=== PATIENT | female | born 1945 | race Caucasian/White ===

== ENCOUNTER 2017-03-23 07:47 | Outpatient (CLI) | payer MEDICARE ==
[2017-03-23 08:24] LABS: BASOPHILS # (AUTO) 0.2 10^3/uL (0.0-0.1); BASOPHILS % (AUTO) 3.1 %; EOSINOPHILS # (AUTO) 0.3 10^3/uL (0.0-0.7); EOSINOPHILS % (AUTO) 4.8 %; HGB - HEMOGLOBIN 13.5 g/dL (12.0-16.0); LYMPHOCYTES # (AUTO) 1.5 10^3/uL (1.5-3.5); LYMPHOCYTES % (AUTO) 23.7 %; MEAN CORPUSCULAR HEMOGLOBIN 30.8 pg (27.0-31.0); MEAN CORPUSCULAR HGB CONC 34.6 g/dL (32.0-36.0); MEAN PLATELET VOLUME 8.4 fL (7.9-10.8); MONOCYTES # (AUTO) 0.6 10^3/uL (0.0-1.0); NEUTROPHILS # (AUTO) 3.8 10^3/uL (1.5-6.6); NEUTROPHILS % (AUTO) 59.4 %; RED BLOOD COUNT 4.38 10^6/uL (4.20-5.40); RED CELL DISTRIBUTION WIDTH 13.8 % (12.0-15.0); UNCORRECTED WHITE BLOOD COUNT 6.4 x10^3/uL; WHITE BLOOD COUNT 6.4 x10^3/uL (4.8-10.8)
[2017-03-23 08:47] LABS: ALBUMIN/GLOBULIN RATIO 1.8 (1.0-2.2); BILIRUBIN,TOTAL 1.2 mg/dL (0.2-1.0); BUN - BLOOD UREA NITROGEN 23 mg/dL (6-20); CALCIUM 9.6 mg/dL (8.5-10.3); CARBON DIOXIDE - CO2 29 mmol/L (21-32); CHLORIDE 97 mmol/L (101-111); CHOL/HDL RATIO 2.6 (<4.4); CHOLESTEROL 212 mg/dL; CREATININE 1.1 mg/dL (0.4-1.0); GFR - MDRD 49 (>89); GLUCOSE 101 mg/dL (70-100); HDL CHOLESTEROL 83 mg/dL; LDL/HDL RATIO 1.4 (<4.4); POTASSIUM 4.1 mmol/L (3.5-5.0); SODIUM 135 mmol/L (135-145); TOTAL PROTEIN 6.4 g/dL (6.7-8.2); TRIGLYCERIDES 77 mg/dL; VLDL CHOLESTEROL 15 mg/dL
== END 2017-03-23 07:48 | disposition home or self-care (01) ==
LOC: LAB 07:47
PROVIDERS: ATTEND Nurse Practitioner Primary Care
DX: R22.2 Localized swelling, mass and lump, trunk (principal); Z79.899 Other long term (current) drug therapy
CPT/HCPCS: 36415; 80053; 80061; 84443; 85025

== ENCOUNTER 2017-04-15 08:19 | Outpatient (CLI) | payer MEDICARE ==
--- NOTE | 2017-04-15 16:28 | DEXA Report ---
DEXA SCAN: 04/15/2017 CLINICAL INDICATION: Postmenopausal. TECHNIQUE: Dual energy x-ray absorptiometry (DXA) was performed on a [employer] system. Regions measured are the AP spine, femoral neck, and, if needed, forearm. COMPARISON: None. In accordance with the International Society for Clinical Densitometry (ISCD) guidelines, data from previous exams may be reanalyzed using current recommendations and techniques. This is done to allow a more accurate basis for comparison with the current study. FINDINGS: The data for the lumbar spine is as follows: REGION BMD (g/cm/cm) T-SCORE Z-SCORE L1 0.885 -2.0 -0.3 L2 0.965 -2.0 -0.2 L3 1.030 -1.4 0.4 L4 1.118 -0.7 1.1 TOTAL 1.006 -1.5 0.3 NOTE: All evaluable vertebrae are used for classification. The data for the hip is as follows: REGION BMD (g/cm/cm) T-SCORE Z-SCORE Neck 0.788 -1.8 0.1 TOTAL 0.887 -1.0 0.7 NOTE: The femoral neck or total proximal femur, whichever is lowest, is used for classification. IMPRESSION: THE WHO CLASSIFICATION BASED ON THE INTERNATIONAL REFERENCE STANDARD IS OSTEOPENIA. THE FRACTURE RISK IS INCREASED. RECOMMENDATION: Patients with diagnosis of osteoporosis or osteopenia should have regular bone mineral density assessment. For those eligible for Medicare, routine testing is allowed once every 2 years. Testing frequency can be increased for patients who have rapidly progressing disease or for those who are receiving medical therapy to restore bone mass. COMMENT: World Health Organization (WHO) definitions for osteoporosis and osteopenia: NORMAL BMD: T-score at -1.0 or higher, fracture risk is low. OSTEOPENIA BMD: T-score between -1.0 and -2.5, fracture risk is increased. OSTEOPOROSIS BMD: T-score at -2.5 or lower, fracture risk high. National Osteoporosis Foundation recommends: 1. Obtain adequate dietary calcium (at least 1200 mg per day) and vitamin D (400 -800 international units per day). 2. Participate, as appropriate, in regular weightbearing and muscle- strengthening exercise. 3. Avoid tobacco use and reduce alcohol and caffeine intake. 4. For more detailed information see the website at www.NOF.org. MTDD
== END 2017-04-15 08:20 | disposition home or self-care (01) ==
LOC: DI 08:19
PROVIDERS: ATTEND Nurse Practitioner Primary Care
DX: Z13.820 Encounter for screening for osteoporosis (principal); M85.89 Other specified disorders of bone density and structure, multiple sites; Z78.0 Asymptomatic menopausal state
CPT/HCPCS: 77080

== ENCOUNTER 2017-04-15 08:23 | Outpatient (CLI) | payer MEDICARE ==
--- NOTE | 2017-04-16 15:21 | Mammography Report ---
DIGITAL SCREENING MAMMOGRAM: 04/15/2017 CLINICAL INDICATION: A 71-year-old with history of late childbearing, for screening. COMPARISON: 06/2015, 05/2014, 07/2011, 06/2010, 06/2009, 03/2008. TECHNIQUE: Routine CC and MLO projections were obtained of the breasts. FINDINGS: The breasts demonstrate scattered fibroglandular densities bilaterally. A few coarse, typi leoncio benign calcifications are present. No suspicious masses, clustered microcalcifications, or jesus ons of architectural distortion are identified. IMPRESSION: BENIGN FINDINGS. RECOMMENDATION: ROUTINE ANNUAL SCREENING UNLESS OTHERWISE CLINICALLY INDICATED. BIRADS CATEGORY 2-BENIGN FINDINGS. STANDARD QUALIFYING STATEMENTS 1. This examination was reviewed with the aid of Computer-Aided Detection (CAD). 2. A negative or benign imaging report should not delay biopsy if clinically suspicious findings are present. Consider surgical consultation if warranted. More than 5% of cancers are not identified by i maging. 3. Dense breasts may obscure an underlying neoplasm. JOB #: [id number] EXT JOB #:[id number]
== END 2017-04-15 08:24 | disposition home or self-care (01) ==
LOC: DI 08:23
PROVIDERS: ATTEND Nurse Practitioner Primary Care
DX: Z12.31 Encounter for screening mammogram for malignant neoplasm of breast (principal)
CPT/HCPCS: 77067

== ENCOUNTER 2018-04-06 07:02 | Outpatient (CLI) | payer MEDICARE ==
[2018-04-06 07:35] LABS: BASOPHILS # (AUTO) 0.1 10^3/uL (0.0-0.1); BASOPHILS % (AUTO) 2.1 %; EOSINOPHILS # (AUTO) 0.2 10^3/uL (0.0-0.7); EOSINOPHILS % (AUTO) 2.9 %; HGB - HEMOGLOBIN 13.7 g/dL (12.0-16.0); LYMPHOCYTES # (AUTO) 1.4 10^3/uL (1.5-3.5); LYMPHOCYTES % (AUTO) 19.5 %; MEAN CORPUSCULAR HEMOGLOBIN 30.5 pg (27.0-31.0); MEAN CORPUSCULAR HGB CONC 33.9 g/dL (32.0-36.0); MEAN CORPUSCULAR VOLUME 89.9 fL (81.0-99.0); MEAN PLATELET VOLUME 7.8 fL (7.9-10.8); MONOCYTES # (AUTO) 0.5 10^3/uL (0.0-1.0); MONOCYTES % (AUTO) 7.6 %; NEUTROPHILS # (AUTO) 4.9 10^3/uL (1.5-6.6); NEUTROPHILS % (AUTO) 67.9 %; PLT - PLATELET COUNT 295 10^3/uL (130-450); RED BLOOD COUNT 4.48 10^6/uL (4.20-5.40); RED CELL DISTRIBUTION WIDTH 13.4 % (12.0-15.0); WHITE BLOOD COUNT 7.2 x10^3/uL (4.8-10.8)
[2018-04-06 07:49] LABS: ALBUMIN 4.3 g/dL (3.2-5.5); ALBUMIN/GLOBULIN RATIO 1.7 (1.0-2.2); ALKALINE PHOSPHATASE 82 IU/L (42-121); ALT ALANINE AMINOTRANSFERASE 19 IU/L (10-60); AST ASPARTATE AMINOTRANSFERASE 24 IU/L (10-42); BILIRUBIN,TOTAL 1.1 mg/dL (0.2-1.0); BUN - BLOOD UREA NITROGEN 23 mg/dL (6-20); CALCIUM 9.5 mg/dL (8.5-10.3); CARBON DIOXIDE - CO2 29 mmol/L (21-32); CHLORIDE 93 mmol/L (101-111); CHOL/HDL RATIO 3.3 (<4.4); CHOLESTEROL 288 mg/dL; CREATININE 1.2 mg/dL (0.4-1.0); GFR - MDRD 44 (>89); GLUCOSE 89 mg/dL (70-100); HDL CHOLESTEROL 88 mg/dL; LDL CHOLESTEROL,CALCULATED 180 mg/dL; SODIUM 130 mmol/L (135-145); TOTAL PROTEIN 6.8 g/dL (6.7-8.2); VLDL CHOLESTEROL 20 mg/dL
== END 2018-04-06 07:03 | disposition home or self-care (01) ==
LOC: LAB 07:02
PROVIDERS: ATTEND Nurse Practitioner Primary Care
DX: Z13.29 Encounter for screening for other suspected endocrine disorder (principal); Z79.899 Other long term (current) drug therapy; E78.5 Hyperlipidemia, unspecified; N18.3 Chronic kidney disease, stage 3 (moderate); I10 Essential (primary) hypertension; F41.8 Other specified anxiety disorders
CPT/HCPCS: 36415; 80053; 80061; 83721; 84443; 85025

== ENCOUNTER 2018-04-12 12:31 | Outpatient (CLI) | payer MEDICARE ==
--- NOTE | 2018-04-14 09:44 | XRAY Report ---
Procedure Date: 04/12/2018 Accession Number: [id number] / [id number] Procedure: XR - Shoulder 2 View LT CPT Code: FULL RESULT: EXAM: LEFT SHOULDER RADIOGRAPHY EXAM DATE: 04/12/2018 01:25 PM. CLINICAL HISTORY: IMPINGEMENT SYNDROME OF LT SHOULDER. Decreased range of motion after pulling weeds one week ago. COMPARISON: None. TECHNIQUE: 2 views. FINDINGS: Bones: No acute fracture or bony lesion. Mild degenerative spurring. Joints: Normal alignment. Narrowing of the left acromioclavicular and left glenohumeral joints. No dislocation. Soft tissues: Irregular soft tissue calcification is seen along the superior and lateral aspect of the left humeral head measuring 1.7 cm. Left lung is clear. IMPRESSION: 1. No acute osseous abnormalities. Normal alignment. 2. Degenerative changes of the left shoulder. 3. Left shoulder calcific tendinosis. RADIA
== END 2018-04-12 12:32 | disposition home or self-care (01) ==
LOC: DI 12:31
PROVIDERS: ATTEND Nurse Practitioner Primary Care
DX: M19.012 Primary osteoarthritis, left shoulder (principal); M67.814 Other specified disorders of tendon, left shoulder

== ENCOUNTER 2018-07-06 08:02 | Outpatient (CLI) | payer MEDICARE ==
[2018-07-06 08:40] LABS: BUN - BLOOD UREA NITROGEN 22 mg/dL (6-20); CALCIUM 9.6 mg/dL (8.5-10.3); CARBON DIOXIDE - CO2 31 mmol/L (21-32); CHLORIDE 96 mmol/L (101-111); CHOL/HDL RATIO 2.3 (<4.4); CHOLESTEROL 180 mg/dL; CREATININE 1.1 mg/dL (0.4-1.0); GFR - MDRD 49 (>89); GLUCOSE 101 mg/dL (70-100); HDL CHOLESTEROL 80 mg/dL; LDL CHOLESTEROL,CALCULATED 81 mg/dL; SODIUM 133 mmol/L (135-145); VLDL CHOLESTEROL 19 mg/dL
== END 2018-07-06 08:03 | disposition home or self-care (01) ==
LOC: LAB 08:02
PROVIDERS: ATTEND Nurse Practitioner Primary Care
DX: Z51.81 Encounter for therapeutic drug level monitoring (principal); E78.5 Hyperlipidemia, unspecified
CPT/HCPCS: 36415; 80048; 80061; 83721

== ENCOUNTER 2020-06-21 07:00 | Outpatient (CLI) | payer MEDICARE | END 2020-06-21 23:59 | disposition home or self-care (01) | LOC: LAB.R 07:00 | PROVIDERS: ATTEND Family Medicine | DX: R30.0 Dysuria (principal) | CPT/HCPCS: 81002; 87086; 87181 ==

== ENCOUNTER 2020-08-19 15:20 | Outpatient (CLI) | payer MEDICARE ==
--- NOTE | 2020-08-20 16:45 | Mammography Report ---
BILATERAL DIGITAL SCREENING MAMMOGRAM 3D/2D: 08/19/2020 CLINICAL: Routine screening. Comparison is made to exams dated: 04/15/2017 mammogram and 06/10/2015 mammogram - [facility]. There are scattered fibroglandular elements in both breasts. No significant masses, calcifications, or other findings are seen in either breast. There has been no significant interval change. IMPRESSION: NEGATIVE There is no mammographic evidence of malignancy. A 1 year screening mammogram is recommended. This exam was interpreted at Station ID: [id number]. NOTE: For mammograms, a report in lay terms will be sent to the patient. Approximately 15% of breast malignancies will not be visualized mammographically. In the management of a palpable breast mass, a negative mammogram must not discourage biopsy of a clinically suspicious lesion. Electronically Signed By: Dinesh jennings/guillermorad:08/19/2020 17:16:43 ACR BI-RADS Category 1: Negative [id number] PARENCHYMAL PATTERN: (A) - The breast(s) demonstrate(s) scattered fibroglandular densities. BI-RADS CATEGORY: (1) - 1 RECOMMENDATION: (ANNUAL) - Recommend routine annual screening mammography. [id number] 1 year screening LATERALITY: (B)
== END 2020-08-19 15:21 | disposition home or self-care (01) ==
LOC: DI 15:20
DX: Z12.31 Encounter for screening mammogram for malignant neoplasm of breast (principal)
CPT/HCPCS: 77063; 77067

== ENCOUNTER 2020-08-21 10:13 | Inpatient (IN) | payer MEDICARE ==
[2020-08-21] MEDS ORDERED: ASPIRIN CHEW 81 MG TABLET PO STA (10:28)
--- NOTE | 2020-08-21 10:29 | ED Physician Documentation ---
PD HPI DYSPNEA - Stated complaint Stated Complaint: SOA - Chief complaint Chief Complaint: Resp - History obtained from History obtained from: Patient - Additional information Additional information: This is a 74-year-old woman with history of hypercholesterolemia, hypertension. For the last month or so she has had exertional dyspnea associated with nausea. There is no associated chest pain or discomfort with it. She has no history of heart or lung problems that she knows of, but does recall having a stress test maybe 10 or 15 years ago that was normal. She denies pedal edema or calf pain. She has a mild chronic dry cough from her lisinopril, no acute cough. No fevers. Review of Systems Ten Systems: 10 systems reviewed and negative Constitutional: reports: Fatigue. denies: Fever, Chills Cardiac: denies: Chest pain / pressure, Palpitations, Pedal edema, Calf pain Respiratory: reports: Dyspnea PD PAST MEDICAL HISTORY - Past Medical History Cardiovascular: Hypertension Respiratory: None Endocrine/Autoimmune: None GI: GERD : None HEENT: Macular degeneration Psych: Anxiety Musculoskeletal: Osteoarthritis Derm: None - Past Surgical History General: Colonoscopy HEENT: Tonsil/Adenoidectomy - Present Medications Home Medications: Ambulatory Orders Medication Instructions Recorded Confirmed Hydrochlorothiazide 25 mg PO DAILY 10/03/14 10/04/14 LORazepam [Lorazepam] 0.5 mg PO ONCE PRN 10/03/14 10/04/14 lisinopriL [Lisinopril] 10 mg PO QPM 10/03/14 10/04/14 - Allergies Allergies/Adverse Reactions: Allergies Allergy/AdvReac Type Severity Reaction Status Date / Time No Known Drug Allergies Allergy Verified 08/21/20 10:28 - Social History Does the pt smoke?: No PD ED PE NORMAL - Vitals Vital signs reviewed: Yes - General General: Alert and oriented X 3, No acute distress - HEENT HEENT: PERRL, EOMI - Neck Neck: Supple, no meningeal sign, No bony TTP - Cardiac Cardiac: RRR, No murmur - Respiratory Respiratory: No respiratory distress, Clear bilaterally - Abdomen Abdomen: Non tender - Extremities Extremities: No edema, No calf tenderness / cord - Neuro Neuro: Alert and oriented X 3, Normal speech Results - Vitals Vitals: Vital Signs - 24 hr 08/21/20 10:24 Temperature 36.9 C Heart Rate 74 Respiratory 10 L Rate Blood Pressure 143/84 H O2 Saturation 97 Oxygen O2 Source Room air - EKG (time done) 1048 Rate: Rate (enter#) (60) Rhythm: NSR [place]: LAD Intervals: Normal FL QRS: Normal Ischemia: Non specific changes. No: ST elevation c/w ischemia, ST depression Computer interpretation: Agree with computer - Labs Labs: Laboratory Tests 08/21/20 08/21/20 08/21/20 10:40 10:40 10:40 WBC 7.8 RBC 4.70 Hgb 14.2 Hct 42.5 MCV 90.4 MCH 30.2 MCHC 33.4 RDW 13.3 Plt Count 225 MPV 9.9 Neut # (Auto) 5.6 Lymph # (Auto) 1.2 L Kimball # (Auto) 0.8 Eos # (Auto) 0.1 Baso # (Auto) 0.1 Absolute Nucleated RBC 0.00 Nucleated RBC % 0.0 D-Dimer 788.8 H Sodium 137 Potassium 3.9 Chloride 100 L Carbon Dioxide 26 Anion Gap 11.0 BUN 21 H Creatinine 1.3 H Estimated GFR (MDRD) 40 L Glucose 113 H Calcium 9.9 Total Bilirubin 1.1 H AST 19 ALT 15 Alkaline Phosphatase 77 Troponin I High Sens B-Natriuretic Peptide Total Protein 6.9 Albumin 4.0 Globulin 2.9 Albumin/Globulin Ratio 1.4 Lipase 41 08/21/20 08/21/20 10:40 10:40 WBC RBC Hgb Hct MCV MCH MCHC RDW Plt Count MPV Neut # (Auto) Lymph # (Auto) Kimball # (Auto) Eos # (Auto) Baso # (Auto) Absolute Nucleated RBC Nucleated RBC % D-Dimer Sodium Potassium Chloride Carbon Dioxide Anion Gap BUN Creatinine Estimated GFR (MDRD) Glucose Calcium Total Bilirubin AST ALT Alkaline Phosphatase Troponin I High Sens 12.0 B-Natriuretic Peptide 66 Total Protein Albumin Globulin Albumin/Globulin Ratio Lipase - Rads (name of study) 1v CXR Radiology: EMP read contemporaneously (Lg pA vs R hilar mass) CT Chest Radiology: EMP read contemporaneously (Multiple bilateral pulmonary emboli, segmental with large pulmonary artery and large lung volumes without evidence of malignancy.) PD MEDICAL DECISION MAKING - ED course ED course: 74-year-old woman presents with exertional shortness of breath nausea and dizziness for the last month. Her examination is normal. Her EKG is nonischemic. Troponin negative. Chest x-ray has shown, somewhat concerning for malignancy, followed up with a chest CT showing multiple pulmonary emboli. She did become significantly hypoxemic while in the department, down to 76% on room air requiring supplemental oxygen and as such I ordered Lovenox and spoke with Dr. Lee for admission at 11:50 AM. Departure - Departure Disposition: [facility] DC/Xfer Clinical Impression: Hypoxemia Pulmonary embolism Qualifiers: Pulmonary embolism type: multiple subsegmental (without acute cor pulmonale) Qualified Code(s): I26.94 - Multiple subsegmental pulmonary emboli without acute cor pulmonale Condition: Serious
[2020-08-21 10:45] LABS: BASOPHILS # (AUTO) 0.1 10^3/uL (0.0-0.1); BASOPHILS % (AUTO) 0.8 %; EOSINOPHILS # (AUTO) 0.1 10^3/uL (0.0-0.7); EOSINOPHILS % (AUTO) 1.4 %; HGB - HEMOGLOBIN 14.2 g/dL (12.0-16.0); LYMPHOCYTES # (AUTO) 1.2 10^3/uL (1.5-3.5); LYMPHOCYTES % (AUTO) 15.7 %; MEAN CORPUSCULAR HEMOGLOBIN 30.2 pg (27.0-31.0); MEAN CORPUSCULAR HGB CONC 33.4 g/dL (32.0-36.0); MEAN CORPUSCULAR VOLUME 90.4 fL (81.0-99.0); MEAN PLATELET VOLUME 9.9 fL (7.9-10.8); MONOCYTES # (AUTO) 0.8 10^3/uL (0.0-1.0); NEUTROPHILS # (AUTO) 5.6 10^3/uL (1.5-6.6); NEUTROPHILS % (AUTO) 71.7 %; PLT - PLATELET COUNT 225 10^3/uL (130-450); RED CELL DISTRIBUTION WIDTH 13.3 % (12.0-15.0); WHITE BLOOD COUNT 7.8 x10^3/uL (4.8-10.8)
--- NOTE | 2020-08-21 10:48 | XRAY Report ---
PROCEDURE: Chest 1 View X-Ray INDICATIONS: Chest Pain TECHNIQUE: One view of the chest was acquired. COMPARISON: CXR 12/05/2014. FINDINGS: Surgical changes and devices: None. Lungs and pleura: No pleural effusions or pneumothorax. Lungs are clear. Prominent lung volumes. Mediastinum: Mediastinal contours appear unchanged. Mild fullness in the right hilar region. Heart size is normal. Bones and chest wall: No suspicious bony lesions. Overlying soft tissues appear unremarkable. IMPRESSION: No acute cardiopulmonary abnormality. Prominent lung volumes. Suspect emphysematous change. Mild prominence in the right hilar region. However, this appears similar to 2014 and may be due to pr ominent pulmonary artery. If there is suspicion for adenopathy recommend CT of the chest with IV cont rast. Reviewed by: Cipriano Zavala MD on 08/21/2020 10:47 AM PDT Approved by: Cipriano Zavala MD on 08/21/2020 10:47 AM PDT Station ID: [id number]
[2020-08-21 11:01] LABS: ALBUMIN/GLOBULIN RATIO 1.4 (1.0-2.2); BILIRUBIN,TOTAL 1.1 mg/dL (0.2-1.0); CALCIUM 9.9 mg/dL (8.5-10.3); CREATININE 1.3 mg/dL (0.4-1.0); TOTAL PROTEIN 6.9 g/dL (6.7-8.2)
[2020-08-21] MEDS ORDERED: IOVERSOL 320 100 ML VIAL IVP ONE (11:11)
--- NOTE | 2020-08-21 11:40 | CT Report ---
PROCEDURE: CHEST W INDICATIONS: dyspnea, abn cxr CONTRAST: IV CONTRAST: Optiray 320 ml: 100 PO CONTRAST: *NO PO CONTRAST TECHNIQUE: After the administration of intravenous contrast, 5 mm thick sections acquired from the pulmonary api julito to the posterior costophrenic angles. 7 mm thick coronal MIP reformats were acquired. For radia tion dose reduction, the following was used: automated exposure control, adjustment of mA and/or kV according to patient size. COMPARISON: None. FINDINGS: Image quality: Excellent. Lungs and pleura: No acute air space opacities but there are relatively large lung volumes bilateral ly. No pleural effusions or pneumothorax. Central and peripheral airways are patent and normal in ca liber. Mediastinum: Heart size is normal. No pericardial effusion. No mediastinal or hilar adenopathy by size criteria. Thoracic aorta and central pulmonary arteries are asymmetric in size, normal at the a caryn but enlarged at the central pulmonary arteries. On discussing the case with the emergency room p hysician caring for the patient symptomatology of pulmonary emboli apparently began approximately 30 days ago. This may explain the prominence of the central pulmonary arteries given that relative chron icity. Note is made of multiple bilateral pulmonary emboli, generally partially obstructive, somewhat greate r on the right than the left. Involving the upper, middle third and lower thirds of the lung parenchy ma bilaterally. [employer] images with emboli within are presented utilizing the selected montage panel. Esophagus is normal in caliber. No hiatal hernia. Bones and chest wall: No suspicious bony lesions. No vertebral body compression fractures. No axil lm or supraclavicular adenopathy by size criteria. Thyroid gland appears normal where well seen. Abdomen: Visualized upper abdominal solid organs appear normal. Upper abdominal bowel loops are nor mal in caliber. IMPRESSION: Large lung volumes appears present. However, there is no evidence of malignancy. The central pulmonar y arteries are enlarged when compared to the aorta and its main tributaries which are free of aneurys m or dissection. There are bilateral pulmonary emboli, generally nonobstructive, with no sign of right heart strain. T he current examination shows the pulmonary arteries are relatively large, but this may be a manifesta tion of reported 30 days of possible symptomatology of pulmonary emboli. Findings were discussed in detail with the emergency room physician caring for the patient. Reviewed by: Evan Renee MD on 08/21/2020 11:38 AM PDT Approved by: Evan Renee MD on 08/21/2020 11:38 AM PDT Station ID: [id number]
[2020-08-21] MEDS ORDERED: ENOXAPARIN 80 MG/0.8 ML SYRINGE SUBQ STA (11:48)
[2020-08-21] MEDS ORDERED: SODIUM CHLORIDE FLUSH 0.9% 10 ML SYRINGE IVP PRN (12:22)
[2020-08-21] MEDS ORDERED: ONDANSETRON 4 MG/2 ML VIAL IVP PRN (12:22)
[2020-08-21] MEDS ORDERED: ACETAMINOPHEN 325 MG TABLET PO PRN (12:22)
[2020-08-21 12:51] LABS: INR 1.1 (0.8-1.2); PT - PROTHROMBIN TIME 12.3 secs (9.9-12.6)
--- NOTE | 2020-08-21 15:36 | Ultrasound Report ---
PROCEDURE: Duplex Ext Veins Bilateral INDICATIONS: Bilateral pulmonary emboli TECHNIQUE: Real-time imaging, as well as color and pulse Doppler interrogation, were performed of the deep veins of both legs from the inguinal ligament to the popliteal fossa. COMPARISON: FINDINGS: The deep veins are normally compressible, and free of intraluminal thrombus. Color and pu lse Doppler demonstrate normal phasic intravascular flow. There is normal augmentation response to d istal compression maneuver. IMPRESSION: No sonographic evidence of DVT. Reviewed by: Henry Jaimes MD on 08/21/2020 3:34 PM PDT Approved by: Henry Jaimes MD on 08/21/2020 3:34 PM PDT Station ID: [id number]
[2020-08-21 16:57] LABS: BILIRUBIN,URINE NEGATIVE (NEGATIVE); GLUCOSE, URINE (UA) NEGATIVE (NEGATIVE); KETONES,URINE (UA) NEGATIVE (NEGATIVE); LEUKOCYTE ESTERASE, URINE NEGATIVE (NEGATIVE); NITRITE,URINE NEGATIVE (NEGATIVE); OCCULT BLOOD,URINE TRACE-INTA (NEGATIVE); PROTEIN,URINE NEGATIVE (NEGATIVE); UROBILINOGEN,URINE 0.2 (NORMAL) E.U./dL (NORMAL)
[2020-08-21 17:02] LABS: CLARITY,URINE CLEAR (CLEAR)
[2020-08-21] MEDS: SODIUM CHLORIDE FLUSH 0.9% 10 ML SYRINGE IVP SCH (17:05)
[2020-08-21 17:07] LABS: BACTERIA,URINE Many /HPF (None Seen); SQUAMOUS EPITHELIAL CELL,UR NONE SEEN (<= Few); WBC CLUMPS,URINE PRESENT
--- NOTE | 2020-08-21 17:59 | PHARMACY PROGRESS NOTE ---
- Best Possible Medication History Admit Date and Time: 08/21/20 1219 Processed by: Pharmacy Medication History completed: Yes Patient Interview: Completed Secondary Source(s): Physician records, Pharmacy records, Insurance records As the person ultimately responsible for medication therapy, providers are able to order a medication from an existing home medication list in [facility] via the "Reconcile Routine" prior to Confirmation of that medication by manager support. Such practice is discouraged except when the physician, in their clinical judgment, deems that a medical need exists for a medication without regard to previous use.
--- NOTE | 2020-08-21 18:21 | HISTORY & PHYSICAL EXAMINATION ---
DATE OF SERVICE: 08/21/2020 Physician: Ariella Lee MD HISTORY OF PRESENT ILLNESS: This is a 74-year-old white female who is a . She has a history of uterine cancer, stage I that was removed with hysterectomy 15 years ago and has needed no other treatment or followup. She has a history of hypertension, treated with HCTZ and lisinopril, depression, which has been treated with Citalopram. 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 Patient noticed that about 1-2 months ago, she started to get short of breath with activity, not at rest; no orthopnea, PND, leg edema, or chest pain or palpitations. This slowly progressed over the past 4 to 8 weeks where a few days ago, she could not even walk up 1 flight of stairs without being short of breath. Yesterday and today, even just 3 steps made her short of breath. With this, she presented to the emergency room and was found to have oxygen saturation on room air of 76% and workup showed a very elevated D-dimer of 788 and she underwent chest x-ray, leading to a CT of the chest that shows multiple pulmonary emboli. Because of her significant desaturation she is being admitted for medical management and institution of anticoagulants. Patient denies any current history of cancer. She does remember a lengthy car trip, which was about 2 months ago in mid June that she took with her son to [place]. She states she also is more immobilized over the summer months because of COVID while enjoying lying down and reading novels. ALLERGIES: NONE. MEDICATIONS: 1. HCTZ 25 mg daily. 2. Citalopram 10 mg daily. 3. Colace 250 mg daily. 4. Mucinex 600 mg p.r.n. 5. Lisinopril 5 mg daily. 6. Atorvastatin 10 mg daily. 7. Calcium supplements daily. REVIEW OF SYSTEMS: Patient reports currently having dysuria and having dysuria about 2 months ago for which she underwent a 5-day course of antibiotics, which controlled her dysuria only for a week and then it recurred. She also describes new incontinence of urine. She also describes pain when she defecates. She denies any diarrhea or abdominal cramping or fever. She was supposed to see a Urologist for evaluation of the dysuria and UTI and has not been established with one yet. She had Dr. Mckeon as her PCP and has only seen her new PCP, Dr. Lindquist once, she states. She is compliant with her medications. Patient remembers undergoing a stress test and an Echo done over 10 years ago for unknown reasons and thought she remembered being told she has pulmonary hypertension. A comprehensive review of systems was performed and the pertinent positives are listed, the rest are negative. FAMILY HISTORY: No inherited diseases run in the family. SOCIAL HISTORY: Patient is a nonsmoker, who never smoked, drinks no alcohol, lives alone, drives, is independent and does all the ADLs in the house. 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 She is a . She has several children who live close to her. PHYSICAL EXAMINATION GENERAL: Thin, elderly white female. She is in no distress at rest. VITAL SIGNS: Blood pressure 130/66, pulse 53 in sinus rhythm, afebrile, room air saturation 76%, which increased to 98% on 4 liters nasal cannula. HEENT: Unremarkable. NECK: No JVD in a vertical position. No carotid bruits. CHEST: Clear. No rales or rub. HEART: Normal heart sounds with no RV heave and no murmur. ABDOMEN: Soft, nontender. Normal bowel sounds. EXTREMITIES: No clubbing, cyanosis or edema. Negative Homans sign. NEUROLOGIC: Grossly intact. LABORATORY DATA: D-dimer 788. INR 1.1. CBC normal. Electrolytes normal, BUN 21, creatinine 1.3. Troponin normal at 12. BNP normal at 66. Liver tests normal. Urinalysis showed pH of 6, specific gravity less than 1.005, high RBCs, high white cells and many bacteria. EKG: Normal sinus rhythm at a rate of 60, left axis deviation, poor R-wave progression. There is no old EKG available for comparison. IMAGING: Chest x-ray: Emphysematous changes of the lungs are present. There is mild prominence in the right hilar region, which could be a dilated pulmonary artery. Chest CT: Heart size is normal. There is no pericardial effusion. There is prominence of the central pulmonary arteries, which appear chronic. There are multiple bilateral pulmonary emboli, partially obstructive, somewhat greater on the right than the left. There is no evidence of malignancy. IMPRESSION/DIAGNOSES 1. Pulmonary embolism. 2. Acute respiratory failure with hypoxia. 3. Prerenal azotemia. 4. Urinary tract infection with dysuria and abnormal urinalysis. 5. History of hypertension. 6. History of depression. PLAN: Admit patient on telemetry in Inpatient status. Continue with supplemental oxygen. She received Lovenox 1 mg/kg dose in the ER and proceed with oral anticoagulation starting this evening. I discussed the risks and benefits for choices of various treatment with patient, and her son was at bedside. We will start with Eliquis 10 mg p.o. b.i.d. for the first 7 days, then 5 mg b.i.d. for a 3-6 month course. The cause of her PEs is unclear: there was no obvious immobility history, except a car trip to [place] 2 mos ago, and there is no known recurrence of cancer. Will order bilateral venous Doppler of the legs to evaluate for DVTs. Will order Echo to evaluate pulmonary pressure and right heart size and LV and RV contractility. We will request staff to obtain the last stress test and Echo work-up she had done through Dr. Mckeon's office, from Dr. Lindquist's office. Will order pelvic CT to evaluate the symptoms of incontinence and rectal pain with defecation, for the possibility of a pelvic mass or a pelvic source of thrombus. Will stop the HCTZ because of the elevated BUN and creatinine, suggesting that she has volume depletion. Will stop the Lisinopril since she describes a dry cough with this and currently blood pressure is controlled. Resumption and type of antihypertensive agent will depend on findings on the Echo. Follow her BMP daily. Continue with her Citalopram. Start treatment for UTI using oral antibiotics and await urine culture and sensitivities to tailor treatment. She will need to establish with a Urologist after this hospitalization, as was already previously planned. She will need followup for further management of this anticoagulant treatment and determine if she needs a 3-6 month course or lifelong course. This was discussed with patient and the son was at bedside. Oximetry testing will be done with exertion on room air to determine if she needs treatment with a new home O2 order, before discharge. DEEP VENOUS THROMBOSIS PROPHYLAXIS: Pharmacotherapy. CODE STATUS: FULL CODE. ATTESTATION: Patient is expected to be discharged or transferred to another facility within 96 hours: Yes. cc: Kavon Lindquist MD TD: 08/21/2020 17:53 LIZ
[2020-08-21] MEDS ORDERED: amLODIPine 5 MG TABLET PO STA (18:28)
[2020-08-21] MEDS: IOVERSOL 320 100 ML VIAL IVP ONE (18:59)
[2020-08-21] MEDS: CITALOPRAM HYDROBROMIDE 20 MG TABLET PO SCH (20:58)
[2020-08-21] MEDS: DOCUSATE SODIUM 250 MG CAPSULE PO SCH (20:58)
[2020-08-21] MEDS: CIPROFLOXACIN 250 MG TABLET PO SCH (20:59)
[2020-08-21] MEDS: ATORVASTATIN 10 MG TABLET PO SCH (21:00)
[2020-08-21] MEDS: APIXABAN 5 MG TABLET PO SCH (21:01)
[2020-08-22] MEDS: SODIUM CHLORIDE FLUSH 0.9% 10 ML SYRINGE IVP SCH ×3 (00:19→20:43)
[2020-08-22 07:50] LABS: BASOPHILS # (AUTO) 0.1 10^3/uL (0.0-0.1); EOSINOPHILS # (AUTO) 0.3 10^3/uL (0.0-0.7); EOSINOPHILS % (AUTO) 3.2 %; HGB - HEMOGLOBIN 13.6 g/dL (12.0-16.0); LYMPHOCYTES # (AUTO) 1.7 10^3/uL (1.5-3.5); LYMPHOCYTES % (AUTO) 19.9 %; MEAN CORPUSCULAR HEMOGLOBIN 30.8 pg (27.0-31.0); MEAN CORPUSCULAR HGB CONC 34.2 g/dL (32.0-36.0); MEAN CORPUSCULAR VOLUME 90.2 fL (81.0-99.0); MEAN PLATELET VOLUME 10.1 fL (7.9-10.8); MONOCYTES # (AUTO) 0.8 10^3/uL (0.0-1.0); MONOCYTES % (AUTO) 9.3 %; NEUTROPHILS # (AUTO) 5.6 10^3/uL (1.5-6.6); NEUTROPHILS % (AUTO) 66.4 %; PLT - PLATELET COUNT 213 10^3/uL (130-450); RED BLOOD COUNT 4.41 10^6/uL (4.20-5.40); RED CELL DISTRIBUTION WIDTH 13.2 % (12.0-15.0); WHITE BLOOD COUNT 8.4 x10^3/uL (4.8-10.8)
[2020-08-22 08:01] LABS: CALCIUM 9.7 mg/dL (8.5-10.3); CREATININE 1.1 mg/dL (0.4-1.0)
[2020-08-22] MEDS: CIPROFLOXACIN 250 MG TABLET PO SCH ×2 (08:11→20:42)
[2020-08-22] MEDS: APIXABAN 5 MG TABLET PO SCH ×2 (08:12→20:43)
--- NOTE | 2020-08-22 12:39 | PROVIDER PROGRESS NOTE ---
Assessment/Plan - Problem List (1) Acute respiratory failure with hypoxia Assessment/Plan: She continues to need new supplemental oxygen to saturate greater than 90%. Needed 4 L of oxygen on day of admission, down to 3 L yesterday, down to 2 L this morning, down to 1.5 L this afternoon. Management of the PE is underway as well as evaluation for source. Plan to do an oximetry test with RT to determine if she needs home O2 when she is ready for discharge, possibly tomorrow. (2) Bilateral pulmonary embolism Assessment/Plan: She was started on PE doses of Eliquis: 10 mg p.o. twice daily for the first 5 to 7 days and is tolerating this. A prescription was sent to her [facility] pharmacy and it requires prior authorization. This message was delivered to her PCP, Dr. Simms by our finisher hand. Or, the patient can pay for the first week's dose [id number] at $229. This information was delivered to the patient, son on the phone and daughter at bedside [place] does approve using Pradaxa however Pradaxa requires 5 days of parenteral anticoagulation before the oral Pradaxa can be started, therefore this is not a viable option. The patient underwent leg Doppler evaluation yesterday, which was negative for DVT in the legs. Today she had a CT of the pelvis which was negative for pelvic venous thrombosis or any mass to suggest recurrence of her cancer. 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 This was reported to the patient, son on the phone and daughter at bedside. 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 She will need a re ferral to [facility] after discharge. (3) Cor pulmonale Assessment/Plan: Echo was done yesterday that shows right heart enlargement with severe pulmonary hypertension, PAP 72 mmHg. I asked our staff to obtain records from Dr. Simms's office, since Dr. Mckeon had her get Echo and stress testing over 10 years ago, and the patient thought she remembered a diagnosis of pulmonary hypertension. The old records did arrive. She underwent a [facility] treadmill stress test in May 2011 which was normal with ectopy at peak exercise and no saturations reported. There was an echo done with this that showed normal LV size and contractility with normal function after exercise. The right ventricle was already dilated at rest and PA pressure had mild to moderate hypertension (about 50 mmHg). The recommendation was to have an echo with bubble study done to rule out congenital defect. Patient did undergo resting echo about a week later in June 2011 but no bubble study was ordered. I will order a repeat limited 2D echo with just the bubble portion to rule out an intracardiac shunt (4) Pulmonary HTN Assessment/Plan: As above in #3. (5) E. coli UTI Assessment/Plan: The urine culture quickly grew E. coli. She is on empiric oral Cipro. Awaiting sensitivities to tailor her antibiotics. We will add Pyridium if she still has dysuria. (6) Prerenal azotemia Assessment/Plan: She was started on IV antibiotics and the HCTZ was stopped. She has slight improvement in her BUN/creatinine ratio today. Continue to monitor BM P daily. (7) HTN (hypertension) Assessment/Plan: He home Lisinopril was stopped because it was giving her a chronic dry cough. HCTZ was stopped because she needs rehydration. Amlodipine has been started for blood pressure management. (8) History of depression Assessment/Plan: She continues on her home dose of Citalopram. - Current Meds Current Meds: Current Medications Generic Name Dose Route Start Last Admin Trade Name Donavanq PRN Reason Stop Dose Admin Apixaban 10 mg 08/21/20 21:00 08/22/20 08:12 Eliquis PO 08/28/20 09:01 10 mg BID CRISTIAN Administration Atorvastatin Calcium 20 mg 08/21/20 21:00 08/21/20 21:00 Lipitor PO 20 mg QPM CRISTIAN Administration Ciprofloxacin 250 mg 08/21/20 21:00 08/22/20 08:11 Cipro PO 08/24/20 20:59 250 mg BID CRISTIAN Administration Citalopram Hydrobromide 20 mg 08/21/20 21:00 08/21/20 20:58 Celexa PO 20 mg QPM CRISTIAN Administration Docusate Sodium 250 mg 08/21/20 21:00 08/21/20 20:58 Colace 250mg Capsule PO 250 mg QPM CRISTIAN Administration Sodium Chloride 10 ml 08/21/20 17:00 08/22/20 08:13 Normal Saline Flush 0.9% IVP 10 ml 0100,0900,1700 [facility] Administration - Lab Result Fish Bone Diagrams: 08/22/20 07:45 08/22/20 07:45 - Additional Planning My Orders: My Active Orders 08/21/20 12:22 Activity Orders [RC] Q2HR IO [RC] IOSHIFT Initiate Bowel Care Protocol [RC] .protocol Initiate Line Care Protocol [RC] QSHIFT Initiate Personal Care Protoco [RC] .protocol Oxygen Therapy [RC] Routine Telemetry- [RC] Q4HR Vital Signs [RC] Q4HR Acetaminophen [Tylenol] 650 mg PO Q4HR PRN Ondansetron Inj [Zofran Inj] 4 mg IVP Q6HR PRN Sodium Chloride Flush 0.9% [Normal Saline Flush 0.9%] 10 ml IVP PRN PRN Code Status [OTHERS] Routine Condition of Patient [OTHERS] Routine DVT Prophylaxis [OTHERS] Routine 08/21/20 12:24 IV Insert [RC] .ONCE 08/21/20 12:26 Echo Transthoracic Complete [ECHO] Routine 08/21/20 15:23 CUL, URINE [RM] Urgent 08/21/20 Dinner Low Sodium Diet [DIET] 08/21/20 17:00 Sodium Chloride Flush 0.9% [Normal Saline Flush 0.9%] 10 ml IVP 0100,0900,1700 08/21/20 21:00 Apixaban [Eliquis] 10 mg PO BID Atorvastatin [Lipitor] 20 mg PO QPM Ciprofloxacin [Cipro] 250 mg PO BID Citalopram Hydrobromide [Celexa] 20 mg PO QPM Docusate Sodium 250Mg Capsule [Colace 250Mg Capsule] 250 mg PO QPM 08/22/20 13:00 ABDOMEN/PELVIS W [CT] Routine 08/28/20 21:00 Apixaban [Eliquis] 5 mg PO BID Subjective - Subjective Patient Reports: Feeling Better Objective Vital Signs: Vital Signs - 24 hr 08/21/20 08/21/20 08/21/20 13:23 14:25 15:46 Temperature 36.9 C 36.6 C 36.2 C L Heart Rate 80 Heart Rate [ 59 L 53 L Brachial] Respiratory 19 18 20 Rate Blood Pressure 139/81 H Blood Pressure 121/55 L 133/66 H [Left Brachial artery] Blood Pressure [Right Brachial artery] O2 Saturation 94 100 98 10/21/20 10/21/20 10/21/20 16:15 17:16 18:55 Temperature 36.2 C L Heart Rate 53 L Heart Rate [ 62 Brachial] Respiratory 18 Rate Blood Pressure Blood Pressure 154/71 H 131/64 H [Left Brachial artery] Blood Pressure 166/67 H [Right Brachial artery] O2 Saturation 99 94 08/21/20 08/22/20 08/22/20 20:13 00:26 04:16 Temperature 36.5 C 36.5 C 36.5 C Heart Rate Heart Rate [ 58 L 52 L 57 L Brachial] Respiratory 24 18 16 Rate Blood Pressure Blood Pressure 123/63 152/63 H 139/72 H [Left Brachial artery] Blood Pressure [Right Brachial artery] O2 Saturation 95 94 94 08/22/20 07:51 Temperature 36.6 C Heart Rate Heart Rate [ 55 L Brachial] Respiratory 18 Rate Blood Pressure Blood Pressure 127/70 [Left Brachial artery] Blood Pressure [Right Brachial artery] O2 Saturation 95 Oxygen O2 Source Nasal cannula I&O (Last 24 Hrs): Intake and Output Totals x24h 08/20/20 08/21/20 08/22/20 23:59 23:59 23:59 Intake Total 610 812 Output Total 200 Balance 410 812 General: Alert, Oriented x3 HEENT: Mucous membr. moist/pink, Other (Wearing O2 by nasal cannula) Neck: Supple, No JVD Neuro: Alert, Non Focal Cardiovascular: Regular rate Respiratory: No respiratory distress Abdomen: Soft Extremities: No edema - Results Results: Laboratory Results WBC 8.4 x10^3/uL (4.8-10.8) 08/22/20 07:45 RBC 4.41 10^6/uL (4.20-5.40) 08/22/20 07:45 Hgb 13.6 g/dL (12.0-16.0) 08/22/20 07:45 Hct 39.8 % (37.0-47.0) 08/22/20 07:45 MCV 90.2 fL (81.0-99.0) 08/22/20 07:45 MCH 30.8 pg (27.0-31.0) 08/22/20 07:45 MCHC 34.2 g/dL (32.0-36.0) 08/22/20 07:45 RDW 13.2 % (12.0-15.0) 08/22/20 07:45 Plt Count 213 10^3/uL (130-450) 08/22/20 07:45 MPV 10.1 fL (7.9-10.8) 08/22/20 07:45 Neut # (Auto) 5.6 10^3/uL (1.5-6.6) 08/22/20 07:45 Lymph # (Auto) 1.7 10^3/uL (1.5-3.5) 08/22/20 07:45 [place] # (Auto) 0.8 10^3/uL (0.0-1.0) 08/22/20 07:45 Eos # (Auto) 0.3 10^3/uL (0.0-0.7) 08/22/20 07:45 Baso # (Auto) 0.1 10^3/uL (0.0-0.1) 08/22/20 07:45 Absolute Nucleated RBC 0.00 x10^3/uL 08/22/20 07:45 Nucleated RBC % 0.0 /100WBC 08/22/20 07:45 PT 12.3 secs (9.9-12.6) 08/21/20 10:40 INR 1.1 (0.8-1.2) 08/21/20 10:40 D-Dimer 788.8 ng/mL (200.0-255.0) H 08/21/20 10:40 Sodium 137 mmol/L (135-145) 08/22/20 07:45 Potassium 4.1 mmol/L (3.5-5.0) 08/22/20 07:45 Chloride 99 mmol/L (101-111) L 08/22/20 07:45 Carbon Dioxide 26 mmol/L (21-32) 08/22/20 07:45 Anion Gap 12.0 (6-13) 08/22/20 07:45 BUN 18 mg/dL (6-20) 08/22/20 07:45 Creatinine 1.1 mg/dL (0.4-1.0) H 08/22/20 07:45 Estimated GFR (MDRD) 48 (>89) L 08/22/20 07:45 Glucose 104 mg/dL (70-100) H 08/22/20 07:45 Calcium 9.7 mg/dL (8.5-10.3) 08/22/20 07:45 Total Bilirubin 1.1 mg/dL (0.2-1.0) H 08/21/20 10:40 AST 19 IU/L (10-42) 08/21/20 10:40 ALT 15 IU/L (10-60) 08/21/20 10:40 Alkaline Phosphatase 77 IU/L (42-121) 08/21/20 10:40 Troponin I High Sens 12.0 ng/L (2.3-14.8) 08/21/20 10:40 B-Natriuretic Peptide 66 pg/mL (5-100) 08/21/20 10:40 Total Protein 6.9 g/dL (6.7-8.2) 08/21/20 10:40 Albumin 4.0 g/dL (3.2-5.5) 08/21/20 10:40 Globulin 2.9 g/dL (2.1-4.2) 08/21/20 10:40 Albumin/Globulin Ratio 1.4 (1.0-2.2) 08/21/20 10:40 Lipase 41 U/L (22-51) 08/21/20 10:40 Urine Color YELLOW 08/21/20 15:23 Urine Clarity CLEAR (CLEAR) 08/21/20 15:23 Urine pH 6.0 PH (5.0-7.5) 08/21/20 15:23 Ur Specific [place] <=1.005 (1.002-1.030) 08/21/20 15:23 Urine Protein NEGATIVE mg/dL (NEGATIVE) 08/21/20 15:23 Urine Glucose (UA) NEGATIVE mg/dL (NEGATIVE) 08/21/20 15:23 Urine Ketones NEGATIVE mg/dL (NEGATIVE) 08/21/20 15:23 Urine Occult Blood TRACE-INTA (NEGATIVE) 08/21/20 15:23 Urine Nitrite NEGATIVE (NEGATIVE) 08/21/20 15:23 Urine Bilirubin NEGATIVE (NEGATIVE) 08/21/20 15:23 Urine Urobilinogen 0.2 (NORMAL) E.U./dL (NORMAL) 08/21/20 15:23 Ur Leukocyte Esterase NEGATIVE (NEGATIVE) 08/21/20 15:23 Urine RBC 6-10 /HPF (0-5) H 08/21/20 15:23 Urine WBC 11-25 /HPF (0-5) H 08/21/20 15:23 Urine WBC Clumps PRESENT 08/21/20 15:23 Ur Squamous Epith Cells NONE SEEN (<= Few) 08/21/20 15:23 Urine Bacteria Many /HPF (None Seen) H 08/21/20 15:23 Urine Culture Comments INDICATED 08/21/20 15:23 - Procedures Procedures: Procedures COLONOSCOPY (10/04/14)
[2020-08-22] MEDS ORDERED: IOVERSOL 320 100 ML VIAL IVP ONE (13:21)
[2020-08-22] MEDS ORDERED: IOVERSOL 320 50 ML VIAL ONE (13:21)
[2020-08-22] MEDS ORDERED: IOVERSOL 320 50 ML VIAL PO ONE (15:11)
[2020-08-22] MEDS: IOVERSOL 320 100 ML VIAL IVP ONE (15:11)
--- NOTE | 2020-08-22 17:13 | CT Report ---
PROCEDURE: Abdomen/Pelvis W INDICATIONS: Freq UTIs, Rectal pain, has acute Pulm embolism CONTRAST: IV CONTRAST: Optiray 320 ml: 100 PO CONTRAST: Optiray 320 ml50 TECHNIQUE: After the administration of intravenous contrast, 5 mm thick sections acquired from the diaphragms to the symphysis. 5 mm thick coronal and sagittal reformats were acquired. For radiation dose reducti on, the following was used: automated exposure control, adjustment of mA and/or kV according to saritha ent size. COMPARISON: None. FINDINGS: Image quality: Excellent. ABDOMEN: Lung bases: Lung bases are clear. Heart size is normal. Solid organs: Liver and spleen are normal in size and enhancement. Gallbladder Biliary system is non dilated. Pancreas enhances normally. No adrenal nodules. Kidneys demonstrate normal size an d enhancement, without hydronephrosis. Peritoneum and bowel: Bowel loops demonstrate normal wall thickness and caliber. A small appendix a ppears thin-walled and gas-filled. No free fluid or air. Nodes and vessels: No retroperitoneal or mesenteric adenopathy by size criteria. Aorta and inferior vena cava are normal in size. Scattered atheromatous calcifications are present throughout the abdo rachele aorta. Where visualized, the bilateral iliac and femoral veins appear patent. Miscellaneous: No ventral hernias. PELVIS: Genitourinary: Bladder wall thickness is normal. Miscellaneous: No inguinal hernias or adenopathy. Bones: No suspicious bony lesions. No vertebral body compression fractures. IMPRESSION: 1. No acute intra-abdominal findings. Normal appendix. 2. Overall normal appearance of the deep veins of the pelvis. No filling defect to suggest thrombus. 3. Mild aortic atherosclerosis. Reviewed by: Mami Mccabe MD on 08/22/2020 5:12 PM PDT Approved by: Mami Mccabe MD on 08/22/2020 5:12 PM PDT Station ID: [id number]
[2020-08-22] MEDS: DOCUSATE SODIUM 250 MG CAPSULE PO SCH (20:42)
[2020-08-22] MEDS: polyethylene glycoL 3350 17 GM PACKET PO SCH (20:43)
[2020-08-22] MEDS: CITALOPRAM HYDROBROMIDE 20 MG TABLET PO SCH (20:43)
[2020-08-22] MEDS: ATORVASTATIN 10 MG TABLET PO SCH (20:43)
[2020-08-23] MEDS: SODIUM CHLORIDE FLUSH 0.9% 10 ML SYRINGE IVP SCH (00:40)
[2020-08-23 05:34] LABS: BASOPHILS # (AUTO) 0.1 10^3/uL (0.0-0.1); BASOPHILS % (AUTO) 0.9 %; EOSINOPHILS # (AUTO) 0.4 10^3/uL (0.0-0.7); EOSINOPHILS % (AUTO) 3.7 %; HGB - HEMOGLOBIN 13.4 g/dL (12.0-16.0); LYMPHOCYTES # (AUTO) 1.7 10^3/uL (1.5-3.5); LYMPHOCYTES % (AUTO) 18.3 %; MEAN CORPUSCULAR HGB CONC 33.4 g/dL (32.0-36.0); MEAN CORPUSCULAR VOLUME 89.7 fL (81.0-99.0); MEAN PLATELET VOLUME 10.1 fL (7.9-10.8); MONOCYTES # (AUTO) 0.9 10^3/uL (0.0-1.0); NEUTROPHILS # (AUTO) 6.3 10^3/uL (1.5-6.6); NEUTROPHILS % (AUTO) 66.9 %; PLT - PLATELET COUNT 225 10^3/uL (130-450); RED BLOOD COUNT 4.47 10^6/uL (4.20-5.40); RED CELL DISTRIBUTION WIDTH 13.1 % (12.0-15.0); WHITE BLOOD COUNT 9.4 x10^3/uL (4.8-10.8)
[2020-08-23 05:44] LABS: CALCIUM 9.6 mg/dL (8.5-10.3); CREATININE 1.1 mg/dL (0.4-1.0)
--- NOTE | 2020-08-23 07:51 | Discharge Plan ---
Discharge Plan Problem Reviewed?: Yes Disposition: Home, Self Care Condition: Fair Prescriptions: Ciprofloxacin [Cipro] 250 mg PO BID #10 tablet Apixaban [Eliquis] 10 mg PO BID #24 tablet amLODIPine [Norvasc] 5 mg PO DAILY #30 tablet Diet: Low Sodium Activity Restrictions: Activity as Tolerated Shower Restrictions: No Driving Restrictions: No Instruction Topics: Apixaban oral tablets, Embolism Pulmonary, Hypertension Pulmonary Health Concerns: You were admitted for treating blood clots in your lungs and low oxygen levels, causing you to be very short of breath. We found that you have pulmonary hypertension and right-sided heart overload, which you DID have in 2011, but it has now worsened. You are being discharged on a new blood thinner medication, Eliquis. The dose of Eliquis is 10 mg twice a day for 1 week and then 5 mg twice a day for 3 months (possibly longer). Do not skip taking the dose as prescribed. The first week's dosing was electronically prescribed to [facility] pharmacy in [place]. Dr Lindquist's office is working on getting Prior Authorization for the 3 month's doses to be covered by your [facility] insurance. You were tested for needing oxygen at home and you do not need supplemental oxygen at this time. You need to see your PCP soon for referral to a pharmacy retail support specialist. A lmonologist will do more lung testing (like PFTs) and blood tests (like alpha-1 antitrypsin level and Protein S and C levels) and to evaluate if you need other management of the blood clots in your lungs, such as clot removal, which is done at [facility]. Since you have [facility] health Insurance, [facility] will want you to see a specialist "in network" at [facility], but [facility] [place] Commercial Engineer could then refer you to [facility], if you need that procedure. Copies of your recent Echos done during this hospitalization, and 2011 Echos, have been given to you to take to the Commercial Engineer. You have also had your blood pressure medicine changed: stop taking the HCTZ (it caused dehydration) and Lisinopril (it gave you the dry cough), and start daily Amlodipine. You were also found to have a urinary tract infection. You need to finish a course of antibiotics, which have been prescribed for you. All new prescriptions were electronically sent to the [facility] pharmacy in [place]. You may continue all your other medications like Citalopram. Plan of Treatment: As above. Care Goals: Improvement in symptoms and stabilization are the goals. Assessment: The patient and her children understand and are agreeable with the plan. Additional Instructions or Follow Up instructions: If you have new or worsening symptoms, call your PCP for advice or come to the ER. No Smoking: If you smoke, Please STOP! Call for help. Follow-up with: Kavon Lindquist MD [Primary Care Provider] -
--- NOTE | 2020-08-23 08:13 | DISCHARGE SUMMARY ---
Discharge Summary Admit Date: 08/21/20 Discharge Date: 08/23/20 Discharging Provider: Dr Ariella Lee Primary Care Provider: Dr Kavon Lindquist Code Status: Attempt Resuscitation Condition at Discharge: Fair Discharge Disposition: 01 Home, Self Care - HPI History of Present Illness: This is a 74-year-old white female with a remote history of uterine cancer stage I that was removed with hysterectomy. She has a history of hypertension and takes HCTZ and Lisinopril, and depression on Citalopram. The patient [place] She has noticed 4 to 8 weeks of progressive dyspnea on exertion, to the point of being short of breath with just 3 steps on her stairs. He denies chest pain, PND, or thopnea, leg edema. She presented to the ER with shortness of breath and was found to have a room air saturation of 76% and work-up showed chest x-ray with very enlarged pulmonary arteries, CT scan showing multiple bilateral pulmonary emboli. The patient is being admitted for management of PE, to evaluate for DVT source and treat hypoxia. She also described dysuria and urinary incontinence, and her urinalysis was very abnormal, this she will also be started on treatment for a UTI. I discussed her wishes for CODE STATUS and she wishes to be a full code. - HOSPITAL COURSE Hospital Course: (1) Acute respiratory failure with hypoxia She required 4 L of oxygen per nasal cannula to maintain saturations over 90%. This was weaned down slowly, daily. On the day of discharge, she underwent oximetry testing with RT. She had an O2 sat of 95% on room air and with exercise, it dropped to 90%, therefore she did not qualify for home O2. (2) Bilateral pulmonary embolism She was started on Eliquis at doses for PE/DVT: 10 mg p.o. twice daily for the first week, then 5 mg bid for 3-6 mos. A prescription was sent to her [facility] pharmacy and it requires prior authorization [facility] The message about prior auth was delivered to her PCP's office by our chemistry tutor. Or, the patient can pay for the first week's dose [id number] at $229. This information was delivered to the patient, son on the phone and daughter at bedside. ([place] does approve using Pradaxa however Pradaxa requires 5 days of parenteral anticoagulation before the oral Pradaxa can be started, therefore this was not a viable option). The patient underwent leg Doppler evaluation which was negative for DVT in the legs, and she had a CT with contrast of the pelvis which was negative for pelvic venous thrombosis or any mass to suggest recurrence of her cancer. Patient needs further work-up including Protein S and Protein C levels. She may also have in situ pulmonary arterial thrombosis and she may be a candidate for thrombectomy (which is done at [facility]). This was all discussed with the patient, the son and daughter at bedside. I also gave them an article from Up-To-Date which describes this condition, "Overview of the treatment of C hronic Thromboembolic Pulmonary Hypertension". (3) Cor pulmonale Echo was done that showed right heart enlargement with severe pulmonary hypertension, PAP 75 mmHg. Patient remembered having a stress test and an Echo about 10 years ago and we received those records (paper chart). She had undergone a [facility] treadmill stress test with Echo in May 2011 to evaluate dyspnea on exertion, walking an incline even then. The treadmill portion was normal except frequent ectopy occurred at peak exercise, and no O2 saturations were reported. The Echo portion showed normal LV size and contractility with normal function after exercise, but the right ventricle was already dilated at rest and PA pressure had mild-moderate hypertension (about 50 mmHg) then. The recommendation then was to have an Echo with bubble study performed to rule out a congenital heart defect. She did then undergo a resting Echo about a week later in June 2011 but no bubble study was ordered. Therefore, we did another Echo here, with a bubble study and it showed no intracardiac shunt. She needs to be referred to a Classification Counselor for further evaluation of pulmonary HTN, such a PFTs, alpha-1 anti-trypsin level, Protein S and Protein C deficiencies, and CTPH work-up. (4) Pulmonary HTN As above in #3. (5) E. coli UTI The urine culture quickly grew E. coli. She was started on empiric oral Cipro. Sensitivities were not yet available at the time of discharge. (6) Urinary incontinence She knows that there was a plan to be seen by a Urologist, but she has not yet been referred. (7) Prerenal azotemia Her admission labs showed a BUN/creat of 21/1.3. The HCTZ was stopped and she received iv fluids for 2 days. At discharge, her BUN/creat was 18/1.1. HCTZ was advised not to be used at discharge. (8) HTN (hypertension) Her home Lisinopril was stopped because it was giving her a chronic dry cough. HCTZ was stopped because she needed rehydration. Amlodipine has been started for blood pressure management and at discharge, a new prescription for Amlodipine 5 mg daily was ordered. (9) History of depression She was continued on her home dose of Citalopram. - ALLERGIES Allergies/Adverse Reactions: Allergies Allergy/AdvReac Type Severity Reaction Status Date / Time No Known Drug Allergies Allergy Verified 08/21/20 10:28 - MEDICATIONS Home Medications: Ambulatory Orders Medication Instructions Recorded Confirmed Apixaban [Eliquis] 10 mg PO BID #24 tablet 08/21/20 Atorvastatin Calcium 20 mg PO QPM 08/21/20 08/21/20 Citalopram Hydrobromide 20 mg PO DAILY 08/21/20 08/21/20 [Citalopram HBr] Docusate Sodium [Stool Softener] 250 mg PO DAILY PM 08/21/20 08/21/20 guaiFENesin [Mucinex] 600 mg PO DAILY PM 08/21/20 08/21/20 Ciprofloxacin [Cipro] 250 mg PO BID #10 tablet 08/23/20 amLODIPine [Norvasc] 5 mg PO DAILY #30 tablet 08/23/20 - PHYSICAL EXAM AT DISCHARGE General Appearance: positive: No acute distress, Alert Eyes Bilateral: positive: Normal inspection, EOMI ENT: positive: ENT inspection nml, No signs of dehydration Neck: positive: Nml inspection, No JVD, Other (No carotid bruit) Cardiovascular: positive: Regular rate & rhythm, No murmur Abdomen: positive: Non-tender, No distention Skin: positive: Color nml, Warm, Dry Extremities: positive: Non-tender, No pedal edema Neurologic/Psychiatric: positive: Oriented x3 (Non-focal) - LABS Result Diagrams: 08/23/20 05:10 08/23/20 05:10 - DIAGNOSTIC IMAGING Diagnostic Imaging Results: Final report reviewed - FOLLOW UP Follow Up: See PCP soon for hospital follow-up. She needs referral to a Classification Counselor and to a Urologist. - TIME SPENT Time Spent in Discharge (Minutes): 60
[2020-08-23] MEDS ORDERED: amLODIPine 5 MG TABLET PO SCH (09:00)
[2020-08-23] MEDS: CIPROFLOXACIN 250 MG TABLET PO SCH (09:11)
[2020-08-23] MEDS: APIXABAN 5 MG TABLET PO SCH (09:16)
[2020-08-23] MEDS: polyethylene glycoL 3350 17 GM PACKET PO SCH (09:16)
[2020-08-23 13:02] VITALS: BP 98/51
[2020-08-28] MEDS ORDERED: APIXABAN 5 MG TABLET PO SCH (21:00)
== END 2020-08-23 13:20 | disposition home or self-care (01) | DRG 175 ==
LOC: ED 10:13 → MS2 12:19
PROVIDERS: ADMIT Internal Medicine; ATTEND Internal Medicine
DX: I26.94 Multiple subsegmental thrombotic pulmonary emboli without acute cor pulmonale (principal); R09.02 Hypoxemia; I26.99 Other pulmonary embolism without acute cor pulmonale; E78.00 Pure hypercholesterolemia, unspecified; F41.9 Anxiety disorder, unspecified; H35.30 Unspecified macular degeneration; J96.01 Acute respiratory failure with hypoxia; N39.0 Urinary tract infection, site not specified; I27.29 Other secondary pulmonary hypertension; I27.81 Cor pulmonale (chronic); I10 Essential (primary) hypertension; F32.9 Major depressive disorder, single episode, unspecified; B96.20 Unspecified Escherichia coli [E. coli] as the cause of diseases classified elsewhere; R32 Unspecified urinary incontinence; R79.89 Other specified abnormal findings of blood chemistry
CPT/HCPCS: 36415; 71045; 71260; 74177; 80048; 80053; 81001; 83690; 83880; 84484; 85025; 85379; 85610; 87086; 87181; 93005; 93306; 93308; 93970; 94761; 96372; 99283; 99285; A9270; J1650; J8499; Q9967

== ENCOUNTER 2020-12-03 08:00 | Outpatient (CLI) | payer MEDICARE ==
[2020-12-03 19:05] LABS: BILIRUBIN,URINE NEGATIVE (NEGATIVE); GLUCOSE, URINE (UA) NEGATIVE (NEGATIVE); KETONES,URINE (UA) NEGATIVE (NEGATIVE); LEUKOCYTE ESTERASE, URINE NEGATIVE (NEGATIVE); NITRITE,URINE NEGATIVE (NEGATIVE); OCCULT BLOOD,URINE NEGATIVE (NEGATIVE); PROTEIN,URINE NEGATIVE (NEGATIVE); UROBILINOGEN,URINE 0.2 (NORMAL) E.U./dL (NORMAL)
[2020-12-03 19:11] LABS: BACTERIA,URINE None Seen /HPF (None Seen); CLARITY,URINE CLEAR (CLEAR); RBC,URINE None Seen /HPF (0-5); SQUAMOUS EPITHELIAL CELL,UR RARE Squamous (<= Few)
== END 2020-12-03 23:59 | disposition home or self-care (01) ==
LOC: LAB.R 08:00
PROVIDERS: ATTEND Family Medicine
DX: R30.0 Dysuria (principal)
CPT/HCPCS: 81001; 87086

== ENCOUNTER 2021-06-03 08:13 | Outpatient (CLI) | payer MEDICARE ==
[2021-06-03 08:27] LABS: BASOPHILS # (AUTO) 0.1 10^3/uL (0.0-0.1); BASOPHILS % (AUTO) 1.6 %; EOSINOPHILS # (AUTO) 0.2 10^3/uL (0.0-0.7); EOSINOPHILS % (AUTO) 3.5 %; HCT - HEMATOCRIT 43.2 % (37.0-47.0); HGB - HEMOGLOBIN 14.3 g/dL (12.0-16.0); LYMPHOCYTES # (AUTO) 1.6 10^3/uL (1.5-3.5); MEAN CORPUSCULAR HEMOGLOBIN 29.6 pg (27.0-31.0); MEAN CORPUSCULAR HGB CONC 33.1 g/dL (32.0-36.0); MEAN CORPUSCULAR VOLUME 89.4 fL (81.0-99.0); MEAN PLATELET VOLUME 9.6 fL (7.9-10.8); MONOCYTES # (AUTO) 0.5 10^3/uL (0.0-1.0); MONOCYTES % (AUTO) 8.3 %; NEUTROPHILS # (AUTO) 3.9 10^3/uL (1.5-6.6); NEUTROPHILS % (AUTO) 61.3 %; PLT - PLATELET COUNT 251 10^3/uL (130-450); RED BLOOD COUNT 4.83 10^6/uL (4.20-5.40); RED CELL DISTRIBUTION WIDTH 13.8 % (12.0-15.0); WHITE BLOOD COUNT 6.4 x10^3/uL (4.8-10.8)
[2021-06-03 08:45] LABS: ALBUMIN 4.2 g/dL (3.2-5.5); ALBUMIN/GLOBULIN RATIO 1.6 (1.0-2.2); ALKALINE PHOSPHATASE 73 IU/L (42-121); ALT ALANINE AMINOTRANSFERASE 18 IU/L (10-60); AST ASPARTATE AMINOTRANSFERASE 21 IU/L (10-42); BILIRUBIN,TOTAL 1.1 mg/dL (0.2-1.0); BUN - BLOOD UREA NITROGEN 19 mg/dL (6-20); CALCIUM 9.9 mg/dL (8.5-10.3); CARBON DIOXIDE - CO2 28 mmol/L (21-32); CHLORIDE 103 mmol/L (101-111); CHOL/HDL RATIO 2.4 (<4.4); CHOLESTEROL 194 mg/dL; CREATININE 1.1 mg/dL (0.4-1.0); GFR - MDRD 48 (>89); GLUCOSE 97 mg/dL (70-100); HDL CHOLESTEROL 80 mg/dL; LDL CHOLESTEROL,CALCULATED 100 mg/dL; LDL/HDL RATIO 1.3 (<4.4); POTASSIUM 4.9 mmol/L (3.5-5.0); SODIUM 138 mmol/L (135-145); TOTAL PROTEIN 6.8 g/dL (6.7-8.2); TRIGLYCERIDES 72 mg/dL; VLDL CHOLESTEROL 14 mg/dL
[2021-06-03 08:57] LABS: THYROID STIMULATING HORMONE 5.1 uIU/mL (0.34-5.60)
== END 2021-06-03 08:14 | disposition home or self-care (01) ==
LOC: LAB 08:13
PROVIDERS: ATTEND Family Medicine
DX: I26.99 Other pulmonary embolism without acute cor pulmonale (principal); I27.81 Cor pulmonale (chronic); E78.5 Hyperlipidemia, unspecified; E87.1 Hypo-osmolality and hyponatremia; E87.5 Hyperkalemia; F41.9 Anxiety disorder, unspecified; F32.9 Major depressive disorder, single episode, unspecified
CPT/HCPCS: 36415; 80053; 80061; 83721; 84443; 85025

== ENCOUNTER 2022-01-23 08:05 | Outpatient (CLI) | payer MEDICARE ==
[2022-01-23 08:20] LABS: BASOPHILS # (AUTO) 0.1 10^3/uL (0.0-0.1); BASOPHILS % (AUTO) 1.3 %; EOSINOPHILS # (AUTO) 0.2 10^3/uL (0.0-0.7); EOSINOPHILS % (AUTO) 3.6 %; HCT - HEMATOCRIT 42.8 % (37.0-47.0); HGB - HEMOGLOBIN 14.3 g/dL (12.0-16.0); LYMPHOCYTES # (AUTO) 1.8 10^3/uL (1.5-3.5); LYMPHOCYTES % (AUTO) 29.7 %; MEAN CORPUSCULAR HEMOGLOBIN 29.7 pg (27.0-31.0); MEAN CORPUSCULAR HGB CONC 33.4 g/dL (32.0-36.0); MEAN PLATELET VOLUME 9.9 fL (7.9-10.8); MONOCYTES # (AUTO) 0.6 10^3/uL (0.0-1.0); MONOCYTES % (AUTO) 9.6 %; NEUTROPHILS # (AUTO) 3.4 10^3/uL (1.5-6.6); NEUTROPHILS % (AUTO) 55.6 %; PLT - PLATELET COUNT 243 10^3/uL (130-450); RED BLOOD COUNT 4.81 10^6/uL (4.20-5.40); RED CELL DISTRIBUTION WIDTH 13.4 % (12.0-15.0); WHITE BLOOD COUNT 6.1 x10^3/uL (4.8-10.8)
[2022-01-23 08:39] LABS: ALBUMIN/GLOBULIN RATIO 1.4 (1.0-2.2); ALKALINE PHOSPHATASE 68 IU/L (42-121); ALT ALANINE AMINOTRANSFERASE 15 IU/L (10-60); AST ASPARTATE AMINOTRANSFERASE 21 IU/L (10-42); BILIRUBIN,TOTAL 0.9 mg/dL (0.2-1.0); BUN - BLOOD UREA NITROGEN 22 mg/dL (6-20); CALCIUM 9.5 mg/dL (8.5-10.3); CARBON DIOXIDE - CO2 27 mmol/L (21-32); CHLORIDE 98 mmol/L (101-111); CHOL/HDL RATIO 2.2 (<4.4); CHOLESTEROL 182 mg/dL; CREATININE 1.1 mg/dL (0.4-1.0); GFR - MDRD 48 (>89); GLUCOSE 95 mg/dL (70-100); HDL CHOLESTEROL 81 mg/dL; LDL CHOLESTEROL,CALCULATED 89 mg/dL; LDL/HDL RATIO 1.1 (<4.4); POTASSIUM 4.3 mmol/L (3.5-5.0); SODIUM 136 mmol/L (135-145); TOTAL PROTEIN 6.9 g/dL (6.7-8.2); TRIGLYCERIDES 62 mg/dL; VLDL CHOLESTEROL 12 mg/dL
[2022-01-23 08:49] LABS: THYROID STIMULATING HORMONE 4.93 uIU/mL (0.34-5.60)
[2022-01-23 09:31] LABS: ESTIMATED AVERAGE GLUCOSE 120 mg/dL (70-100); HEMOGLOBIN A1c% 5.8 % (4.27-6.07)
== END 2022-01-23 08:06 | disposition home or self-care (01) ==
LOC: LAB 08:05
PROVIDERS: ATTEND Family Medicine
DX: I26.99 Other pulmonary embolism without acute cor pulmonale (principal); I27.20 Pulmonary hypertension, unspecified; I27.81 Cor pulmonale (chronic); E87.5 Hyperkalemia; E87.1 Hypo-osmolality and hyponatremia; E78.5 Hyperlipidemia, unspecified; I10 Essential (primary) hypertension; F41.9 Anxiety disorder, unspecified; F32.A Depression, unspecified; R73.9 Hyperglycemia, unspecified
CPT/HCPCS: 36415; 80053; 80061; 83036; 83721; 84443; 85025

== ENCOUNTER 2022-08-14 10:24 | Emergency (ER) | payer MEDICARE ==
--- NOTE | 2022-08-14 11:12 | CT Report ---
PROCEDURE: HEAD WO INDICATIONS: fall/head injury/Pradaxa TECHNIQUE: Noncontrast 4.5 mm thick angled axial sections acquired from the foramen magnum to the vertex. For r adiation dose reduction, the following was used: automated exposure control, adjustment of mA and/or kV according to patient size. COMPARISON: None. FINDINGS: Image quality: Excellent. CSF spaces: Basal cisterns are patent. No extra-axial fluid collections. Ventricles are normal in size and shape. Brain: No midline shift. No intracranial masses or hemorrhage. Castillo-white matter interface is norm al. Skull and face: Calvarium and visualized facial bones are intact, without suspicious lesions. Sinuses: Visualized sinuses and mastoids are clear. IMPRESSION: No acute intracranial finding. Reviewed by: Henry Jaimes MD on 08/14/2022 11:10 AM PDT Approved by: Henry Jaimes MD on 08/14/2022 11:10 AM PDT Station ID: [id number]
[2022-08-14] MEDS ORDERED: TETANUS/DIPHTHERIA/PERTUSSIS 0.5 ML SYRINGE IM ONE (12:24)
--- NOTE | 2022-08-14 12:28 | ED Physician Documentation ---
History of Present Illness - Stated complaint Stated Complaint: FALL W/ HEAD CUT - Chief complaint Chief Complaint: Trauma Hd/Nk - History obtained from History obtained from: Patient - Additonal information Additional information: Patient states that she was out on a walk with her walking group when she is accidentally stepped off the curb and lost her balance. She fell face first onto the concrete, though she was able to break her fall somewhat with her knees and hands. She did hit her forehead on the concrete and sustained a small laceration. She has had a mild amount of swelling since this happened about an hour ago. She did not lose consciousness and denies any dizziness, headache, or focal neurologic complaints. No neck pain. No back pain. No rib/chest pain or shortness of breath. No abdominal pain. No hip or pelvic pain. The patient was ambulatory after the fall. No other complaints at this time. She is not sure when her last tetanus shot was. Review of Systems Ten Systems: 10 systems reviewed and negative Constitutional: reports: Reviewed and negative Eyes: reports: Reviewed and negative Ears: reports: Reviewed and negative Nose: reports: Reviewed and negative Throat: reports: Reviewed and negative Cardiac: reports: Reviewed and negative Respiratory: reports: Reviewed and negative GI: reports: Reviewed and negative : reports: Reviewed and negative Skin: reports: Laceration (s) Musculoskeletal: reports: Reviewed and negative Neurologic: reports: Head injury Psychiatric: reports: Reviewed and negative Endocrine: reports: Reviewed and negative Immunocompromised: reports: Reviewed and negative PD PAST MEDICAL HISTORY - Past Medical History Cardiovascular: Hypertension Respiratory: None Endocrine/Autoimmune: None GI: GERD : None HEENT: Macular degeneration Psych: Anxiety Musculoskeletal: Osteoarthritis Derm: None - Past Surgical History General: Colonoscopy HEENT: Tonsil/Adenoidectomy - Present Medications Home Medications: Ambulatory Orders Medication Instructions Recorded Confirmed Apixaban [Eliquis] 10 mg PO BID #24 tablet 08/21/20 Atorvastatin Calcium 20 mg PO QPM 08/21/20 08/21/20 Citalopram Hydrobromide 20 mg PO DAILY 08/21/20 08/21/20 [Citalopram HBr] Docusate Sodium [Stool Softener] 250 mg PO DAILY PM 08/21/20 08/21/20 guaiFENesin [Mucinex] 600 mg PO DAILY PM 08/21/20 08/21/20 Ciprofloxacin [Cipro] 250 mg PO BID #10 tablet 08/23/20 amLODIPine [Norvasc] 5 mg PO DAILY #30 tablet 08/23/20 - Allergies Allergies/Adverse Reactions: Allergies Allergy/AdvReac Type Severity Reaction Status Date / Time cyclobenzaprine Allergy Unknown Verified 08/14/22 10:46 - Social History Does the pt smoke?: No Smoking Status: Never smoker PD ED PE NORMAL - Vitals Vital signs reviewed: Yes - General General: Alert and oriented X 3, No acute distress, Well developed/nourished - HEENT HEENT: PERRL, EOMI, Moist mucous membranes, Other (3 cm diameter contusion midline forehead with 1 cm superficial laceration. No bony deformity. No other facial injuries.) - Neck Neck: Supple, no meningeal sign, No bony TTP - Cardiac Cardiac: RRR, No murmur, Strong equal pulses - Respiratory Respiratory: No respiratory distress, Clear bilaterally - Abdomen Abdomen: Soft, Non tender, Non distended - Back Back: No spinal TTP - Derm Derm: Normal color, Warm and dry, No rash, Other (Laceration on forehead as noted above. Occasional abrasions to both hands and right knee.) - Extremities Extremities: No deformity, Normal ROM s pain, No edema, Other (No hip or pelvis tenderness.) - Neuro Neuro: Alert and oriented X 3 - Psych Psych: Normal mood, Normal affect Results - Vitals Vitals: Vital Signs - 24 hr 08/14/22 08/14/22 10:40 12:35 Temperature 36.2 C L Heart Rate 61 84 Respiratory 16 20 Rate Blood Pressure 129/63 127/85 H O2 Saturation 98 97 Oxygen O2 Source Room air - Rads (name of study) Head CT Radiology: Final report received, EMP read indepedently, See rad report (Negative) PD MEDICAL DECISION MAKING - ED course Complexity details: reviewed results, re-evaluated patient, considered differential, d/w patient ED course: The patient was worked up with a head CT which was found to be negative. She preferred not to have sutures but was amenable to Dermabond repair of her laceration. This was done with good results. We have discussed home management of any symptoms and the usual indications for return. Departure - Departure Disposition: 01 Home, Self Care Clinical Impression: Closed head injury Qualifiers: Encounter type: initial encounter Qualified Code(s): S09.90XA - Unspecified injury of head, initial encounter Scalp laceration Qualifiers: Encounter type: initial encounter Qualified Code(s): S01.01XA - Laceration without foreign body of scalp, initial encounter Condition: Stable Instructions: ED Head Injury Closed, ED Laceration Facial Skin Glue Comments: Your head CT looks good. Your laceration has been repaired with Dermabond, especially formulated skin glue, and a Steri-Strip. The wound should heal well on its own, but it is best not to rub or scrub the wound until a solid scab has set up. The skin glue and Steri-Strips should start to come off on their own in the next several days. Discharge Date/Time: 08/14/22 12:36
[2022-08-14 12:36] VITALS: BP 127/85
== END 2022-08-14 12:36 | disposition home or self-care (01) ==
LOC: ED 10:24
DX: S01.81XA Laceration without foreign body of other part of head, initial encounter (principal); I10 Essential (primary) hypertension; S60.512A Abrasion of left hand, initial encounter; S60.511A Abrasion of right hand, initial encounter; S80.211A Abrasion, right knee, initial encounter; W17.89XA Other fall from one level to another, initial encounter
CPT/HCPCS: 12011; 90471; 99284

== ENCOUNTER 2022-11-04 08:47 | Outpatient (CLI) | payer MEDICARE ==
[2022-11-04 09:17] LABS: CALCIUM 9.4 mg/dL (8.5-10.3); CREATININE 1.1 mg/dL (0.4-1.0); POTASSIUM 4.6 mmol/L (3.5-5.0)
[2022-11-04 13:07] LABS: ESTIMATED AVERAGE GLUCOSE 108 mg/dL (70-100); HEMOGLOBIN A1c% 5.4 % (4.27-6.07)
== END 2022-11-04 08:48 | disposition home or self-care (01) ==
LOC: LAB 08:47
PROVIDERS: ATTEND Family Medicine
DX: I27.20 Pulmonary hypertension, unspecified (principal); I26.99 Other pulmonary embolism without acute cor pulmonale; R73.9 Hyperglycemia, unspecified; E87.1 Hypo-osmolality and hyponatremia
CPT/HCPCS: 36415; 80048; 83036

== ENCOUNTER 2023-04-13 07:58 | Outpatient (CLI) | payer MEDICARE ==
[2023-04-13 08:19] LABS: BASOPHILS # (AUTO) 0.1 10^3/uL (0.0-0.1); BASOPHILS % (AUTO) 1.3 %; EOSINOPHILS # (AUTO) 0.2 10^3/uL (0.0-0.7); EOSINOPHILS % (AUTO) 3.7 %; HCT - HEMATOCRIT 41.4 % (37.0-47.0); HGB - HEMOGLOBIN 13.9 g/dL (12.0-16.0); LYMPHOCYTES # (AUTO) 1.5 10^3/uL (1.5-3.5); LYMPHOCYTES % (AUTO) 24.7 %; MEAN CORPUSCULAR HEMOGLOBIN 30.2 pg (27.0-31.0); MEAN CORPUSCULAR HGB CONC 33.6 g/dL (32.0-36.0); MEAN PLATELET VOLUME 10.2 fL (7.9-10.8); MONOCYTES # (AUTO) 0.6 10^3/uL (0.0-1.0); MONOCYTES % (AUTO) 10.2 %; NEUTROPHILS # (AUTO) 3.7 10^3/uL (1.5-6.6); NEUTROPHILS % (AUTO) 59.9 %; PLT - PLATELET COUNT 250 10^3/uL (130-450); RED CELL DISTRIBUTION WIDTH 13.2 % (12.0-15.0); WHITE BLOOD COUNT 6.2 x10^3/uL (4.8-10.8)
[2023-04-13 08:27] LABS: ALBUMIN 3.9 g/dL (3.2-5.5); ALBUMIN/GLOBULIN RATIO 1.3 (1.0-2.2); ALKALINE PHOSPHATASE 71 IU/L (42-121); ALT ALANINE AMINOTRANSFERASE 14 IU/L (10-60); AST ASPARTATE AMINOTRANSFERASE 19 IU/L (10-42); BILIRUBIN,TOTAL 0.9 mg/dL (0.2-1.0); BUN - BLOOD UREA NITROGEN 19 mg/dL (6-20); CALCIUM 9.4 mg/dL (8.5-10.3); CARBON DIOXIDE - CO2 29 mmol/L (21-32); CHLORIDE 100 mmol/L (101-111); CHOL/HDL RATIO 2.3 (<4.4); CHOLESTEROL 190 mg/dL; CREATININE 0.9 mg/dL (0.4-1.0); GFR - MDRD 60 (>89); GLUCOSE 100 mg/dL (70-100); HDL CHOLESTEROL 83 mg/dL; LDL CHOLESTEROL,CALCULATED 91 mg/dL; LDL/HDL RATIO 1.1 (<4.4); POTASSIUM 4.2 mmol/L (3.5-5.0); SODIUM 137 mmol/L (135-145); TOTAL PROTEIN 6.8 g/dL (6.7-8.2); TRIGLYCERIDES 80 mg/dL; VLDL CHOLESTEROL 16 mg/dL
[2023-04-13 08:39] LABS: THYROID STIMULATING HORMONE 4.26 uIU/mL (0.34-5.60)
[2023-04-13 11:49] LABS: ESTIMATED AVERAGE GLUCOSE 111 mg/dL (70-100); HEMOGLOBIN A1c% 5.5 % (4.27-6.07)
== END 2023-04-13 07:59 | disposition home or self-care (01) ==
LOC: LAB 07:58
PROVIDERS: ATTEND Family Medicine
DX: I10 Essential (primary) hypertension (principal); R73.9 Hyperglycemia, unspecified; I80.9 Phlebitis and thrombophlebitis of unspecified site; I26.99 Other pulmonary embolism without acute cor pulmonale; I27.20 Pulmonary hypertension, unspecified; E78.5 Hyperlipidemia, unspecified; F32.A Depression, unspecified; F41.9 Anxiety disorder, unspecified
CPT/HCPCS: 36415; 80053; 80061; 83036; 83721; 84443; 85025

== ENCOUNTER 2023-05-29 15:04 | Outpatient (CLI) | payer MEDICARE | END 2023-05-29 23:59 | disposition short-term general hospital (02) | LOC: EMS 15:04 | DX: M25.552 Pain in left hip (principal); W17.89XA Other fall from one level to another, initial encounter; Y92.008 Other place in unspecified non-institutional (private) residence as the place of occurrence of the external cause | CPT/HCPCS: A0425; A0429 ==

== ENCOUNTER 2023-09-29 14:06 | Outpatient (CLI) | payer MEDICARE ==
--- NOTE | 2023-09-29 15:36 | DEXA Report ---
PROCEDURE: Dexa Spine and/or Hip INDICATIONS: POST MENOPAUSAL TECHNIQUE: Dual energy x-ray absorptiometry (DXA) was performed on a [facility]. Regions measur ed are the AP Spine, femoral neck, and if needed forearm. COMPARISON: 04/15/2017 FINDINGS: Lumbar Spine: Bone Mineral Density 1.02 g/cm/cm,T score -1.3. Osteopenia . Bone mineral density has increased by 2.1% since prior examination. Left Femoral Neck: Bone Mineral Density 0.69 g/cm/cm, T score -2.5. Osteoporosis Left Hip: Bone Mineral Density 0.79 g/cm/cm,T score -1.7. Osteopenia. Bone mineral density has decreased 10.9% since prior examination. (T score greater or equal to -1.0: NORMAL) (T score from -1.1 to -2.4: OSTEOPENIA) (T score less than or equal to -2.5 to: OSTEOPOROSIS) Impression: By WHO criteria, this patient has osteoporosis. Osteopenia of the lumbar spine. Osteoporosis of the hip at the femoral neck. Patients with diagnosis of osteoporosis or osteopenia should have regular bone mineral density assess ment. For those eligible for Medicare, routine testing is allowed once every 2 years. Testing frequ ency can be increased for patients who have rapidly progressing disease or for those who are receivin g medical therapy to restore bone mass. Reviewed by: Dejuan Bray MD on 09/29/2023 3:35 PM PST Approved by: Dejuan Bray MD on 09/29/2023 3:35 PM PST Station ID: [id number]
== END 2023-09-29 14:07 | disposition home or self-care (01) ==
LOC: DI 14:06
PROVIDERS: ATTEND Family Medicine
DX: N95.9 Unspecified menopausal and perimenopausal disorder (principal); M81.0 Age-related osteoporosis without current pathological fracture